=== PATIENT | female | born 1945 | race Caucasian/White ===

== ENCOUNTER 2020-12-21 11:37 | Outpatient (CLI) | payer MEDICARE | END 2020-12-21 11:38 | disposition home or self-care (01) | LOC: BICRAD 11:37 | PROVIDERS: ATTEND Family Medicine | DX: R10.9 Unspecified abdominal pain (principal) | CPT/HCPCS: 74018 ==

== ENCOUNTER 2021-05-28 13:25 | Outpatient (CLI) | payer MEDICARE | END 2021-05-28 13:26 | disposition home or self-care (01) | LOC: BICRAD 13:25 | PROVIDERS: ATTEND Family Medicine | DX: U07.1 COVID-19 (principal); J12.82 Pneumonia due to coronavirus disease 2019 | CPT/HCPCS: 71046 ==

== ENCOUNTER 2021-06-02 06:21 | Inpatient (IN) | payer MEDICARE ==
[2021-06-02 09:39] LABS: SARS-CoV-2 NAA Rapid Test Not Detected (NotDetected)
[2021-06-02] MEDS ORDERED: cefTRIAXone\\ROCEPHIN 1 GM VIAL ONE (10:25)
[2021-06-02] MEDS ORDERED: Ibuprofen 800 MG TAB ONE (10:31)
[2021-06-02 10:36] LABS: #Eosinphils 0.1 thou/uL (0.0-0.7); #Lymphocytes 0.8 thou/uL (1.20-3.40); #Monocytes 1.3 thou/uL (0.11-0.59); #Neutrophils 10.6 thou/uL (1.40-6.50); %Lymphocytes 6.3 % (21.0-51.0); %Monocytes 10.4 % (0.0-10.0); %Neutrophils 82.3 % (42.0-75.0); Hemoglobin 8.4 g/dL (12.0-16.0); Mean Corpuscular HGB CONC 30.8 g/dL (32.0-36.0); Mean Corpuscular Hemoglobin 24.7 pg (27.0-31.0); Mean Corpuscular Volume 80.3 fL (78.0-98.0); Mean Platelet Volume 10.2 fL (7.4-10.4); Platelet Count 137 thou/uL (130-400); RBC Distribution Width 16.7 % (11.5-14.5); Red Blood Cell (RBC) Count 3.41 mill/uL (4.20-5.40); White Blood Cell (WBC) Count 12.9 thou/uL (4.8-10.8)
[2021-06-02 11:08] LABS: ALT (SGPT) 43 U/L (8-55); AST (SGOT) 26 U/L (5-34); Albumin 2.2 g/dL (3.4-4.8); Alkaline Phosphatase 147 U/L (40-110); Anion Gap 12 mmol/L (10-20); BUN (Urea Nitrogen) 29 mg/dL (9.8-20.1); Bilirubin, Total 1.2 mg/dL (0.2-1.2); Calc. Creatinine Clearance 0 mL/min (70-130); Calcium 7.7 mg/dL (7.8-10.44); Carbon Dioxide 26 mmol/L (23-31); Chloride 105 mmol/L (98-107); Globulin 2.5 g/dL (2.4-3.5); Glucose 142 mg/dL (83-110); Potassium 3.6 mmol/L (3.5-5.1); Protein, Total 4.7 g/dL (5.8-8.1); Sodium 139 mmol/L (136-145)
[2021-06-02 11:18] LABS: CKMB 2.3 ng/mL (0-6.6)
[2021-06-02] MEDS ORDERED: Azithromycin 500 MG VIAL ONE (11:24)
[2021-06-02 14:11] LABS: Troponin I 0.117 ng/mL (< 0.028)
[2021-06-02] MEDS ORDERED: Acetaminophen 325 MG TAB PO PRN (14:22)
[2021-06-02] MEDS ORDERED: Enoxaparin Sodium 40 MG/0.4 ML SYRINGE SC SCH (14:30)
[2021-06-02] MEDS ORDERED: Dextrose 5% in Water 1,000 ML IV PRN (14:30)
[2021-06-02] MEDS ORDERED: Dextrose 50% Abboject 50 ML SYRINGE SLOW IVP PRN (14:30)
[2021-06-02] MEDS ORDERED: HumaLOG 300 UNITS/3 ML VIAL SC PRN (14:30)
[2021-06-02] MEDS ORDERED: hydrALAZINE 20 MG/ML VIAL SLOW IVP PRN (14:36)
[2021-06-02] MEDS ORDERED: Furosemide 20 MG/2 ML VIAL SLOW IVP SCH (14:45)
[2021-06-02] MEDS ORDERED: Lisinopril 5 MG TAB PO SCH (16:00)
[2021-06-02 16:40] LABS: Troponin I 0.129 ng/mL (< 0.028)
[2021-06-02 16:44] LABS: Hemoglobin A1c 6.8 % (4.0-6.0)
[2021-06-02] MEDS ORDERED: Polyethylene Glycol 3350 17 GM Packet PO PRN (16:51)
[2021-06-02] MEDS ORDERED: Cyclobenzaprine 10 MG TAB ONE (17:52)
[2021-06-02] MEDS ORDERED: Furosemide 20 MG/2 ML VIAL ONE (17:52)
[2021-06-02] MEDS ORDERED: Enoxaparin Sodium 40 MG/0.4 ML SYRINGE ONE (17:53)
[2021-06-02] MEDS: Nicotine 14 MG PATCH TD SCH (17:59)
[2021-06-02] MEDS: Cyclobenzaprine 10 MG TAB PO SCH ×2 (17:59→20:37)
[2021-06-02] MEDS ORDERED: Famotidine 20 MG TAB PO SCH (21:00)
[2021-06-02] MEDS: Senokot S 8.6-50 MG TAB PO SCH (22:59)
[2021-06-03] MEDS: Ibuprofen 600 MG TAB PO PRN ×3 (01:41→17:47)
[2021-06-03 05:20] LABS: ALT (SGPT) 38 U/L (8-55); AST (SGOT) 22 U/L (5-34); Alkaline Phosphatase 142 U/L (40-110); Anion Gap 12 mmol/L (10-20); BUN (Urea Nitrogen) 28 mg/dL (9.8-20.1); Bilirubin, Total 0.7 mg/dL (0.2-1.2); Calc. Creatinine Clearance 57 mL/min (70-130); Calcium 7.4 mg/dL (7.8-10.44); Carbon Dioxide 25 mmol/L (23-31); Chloride 106 mmol/L (98-107); Globulin 2.3 g/dL (2.4-3.5); Glucose 176 mg/dL (83-110); Potassium 3.8 mmol/L (3.5-5.1); Protein, Total 4.3 g/dL (5.8-8.1); Sodium 139 mmol/L (136-145)
[2021-06-03 06:37] LABS: #Eosinphils 0.2 thou/uL (0.0-0.7); #Lymphocytes 0.7 thou/uL (1.20-3.40); #Monocytes 1.3 thou/uL (0.11-0.59); #Neutrophils 10.1 thou/uL (1.40-6.50); %Basophils 0.2 % (0.0-1.0); %Eosinophils 1.9 % (0.0-10.0); %Lymphocytes 5.8 % (21.0-51.0); %Monocytes 10.3 % (0.0-10.0); %Neutrophils 81.8 % (42.0-75.0); Anisocytosis MODERATE=16-30 cells (100X) (0-5/hpf); Hemoglobin 6.7 g/dL (12.0-16.0); MDiff Complete? YES; Mean Corpuscular HGB CONC 29.5 g/dL (32.0-36.0); Mean Corpuscular Volume 81.5 fL (78.0-98.0); Mean Platelet Volume 9.7 fL (7.4-10.4); Platelet Count 119 thou/uL (130-400); Platelet Morphology Comment Appears Decreased; RBC Distribution Width 16.4 % (11.5-14.5); Red Blood Cell (RBC) Count 2.78 mill/uL (4.20-5.40); White Blood Cell (WBC) Count 12.4 thou/uL (4.8-10.8)
[2021-06-03] MEDS ORDERED: Cyclobenzaprine 10 MG TAB PO PRN (08:11)
[2021-06-03] MEDS: Azithromycin 250 MG TAB PO SCH (08:36)
[2021-06-03] MEDS: Senokot S 8.6-50 MG TAB PO SCH ×2 (08:36→21:34)
[2021-06-03] MEDS: Enoxaparin Sodium 40 MG/0.4 ML SYRINGE SC SCH (08:36)
[2021-06-03] MEDS: cefTRIAXone\\ROCEPHIN 1 GM in Sodium Chloride 0.9% 100 ML IVPB SCH (08:37)
[2021-06-03] MEDS ORDERED: Lisinopril 5 MG TAB PO SCH (09:00)
[2021-06-03] MEDS: Furosemide 20 MG/2 ML VIAL SLOW IVP SCH (09:30)
[2021-06-03] MEDS: Lisinopril 5 MG TAB PO SCH (09:30)
[2021-06-03] MEDS: HumaLOG 300 UNITS/3 ML VIAL SC PRN ×2 (11:44→17:23)
[2021-06-03 12:36] LABS: Iron 15 ug/dL (50-170); Iron Binding Capacity, Total 200 mcg/dL (265-497)
[2021-06-03 12:39] LABS: #Eosinphils 0.2 thou/uL (0.0-0.7); #Lymphocytes 0.8 thou/uL (1.20-3.40); #Monocytes 1.1 thou/uL (0.11-0.59); #Neutrophils 8.8 thou/uL (1.40-6.50); %Basophils 0.1 % (0.0-1.0); %Eosinophils 1.5 % (0.0-10.0); %Lymphocytes 7.6 % (21.0-51.0); %Neutrophils 80.8 % (42.0-75.0); Hemoglobin 7.2 g/dL (12.0-16.0); Mean Corpuscular HGB CONC 30.1 g/dL (32.0-36.0); Mean Corpuscular Hemoglobin 24.5 pg (27.0-31.0); Mean Corpuscular Volume 81.6 fL (78.0-98.0); Mean Platelet Volume 9.4 fL (7.4-10.4); Platelet Count 117 thou/uL (130-400); RBC Distribution Width 16.5 % (11.5-14.5); Red Blood Cell (RBC) Count 2.93 mill/uL (4.20-5.40); White Blood Cell (WBC) Count 10.9 thou/uL (4.8-10.8)
[2021-06-03] MEDS: Nicotine 14 MG PATCH TD SCH (15:59)
[2021-06-03] MEDS: Atorvastatin Calcium 20 MG TAB PO SCH (21:34)
[2021-06-04 05:31] LABS: #Eosinphils 0.3 thou/uL (0.0-0.7); #Lymphocytes 0.7 thou/uL (1.20-3.40); #Monocytes 0.9 thou/uL (0.11-0.59); #Neutrophils 7.9 thou/uL (1.40-6.50); %Basophils 0.2 % (0.0-1.0); %Lymphocytes 7.5 % (21.0-51.0); %Monocytes 9.4 % (0.0-10.0); %Neutrophils 79.9 % (42.0-75.0); Hemoglobin 6.7 g/dL (12.0-16.0); Mean Corpuscular Hemoglobin 24.4 pg (27.0-31.0); Mean Corpuscular Volume 81.2 fL (78.0-98.0); Platelet Count 112 thou/uL (130-400); RBC Distribution Width 16.6 % (11.5-14.5); Red Blood Cell (RBC) Count 2.73 mill/uL (4.20-5.40); White Blood Cell (WBC) Count 9.9 thou/uL (4.8-10.8)
[2021-06-04 05:55] LABS: ALT (SGPT) 36 U/L (8-55); AST (SGOT) 26 U/L (5-34); Alkaline Phosphatase 138 U/L (40-110); Anion Gap 12 mmol/L (10-20); BUN (Urea Nitrogen) 27 mg/dL (9.8-20.1); Bilirubin, Total 0.9 mg/dL (0.2-1.2); Calc. Creatinine Clearance 47 mL/min (70-130); Calcium 7.4 mg/dL (7.8-10.44); Carbon Dioxide 29 mmol/L (23-31); Chloride 106 mmol/L (98-107); Glucose 116 mg/dL (83-110); Potassium 3.7 mmol/L (3.5-5.1); Sodium 143 mmol/L (136-145)
[2021-06-04] MEDS ORDERED: Ferrous Sulfate 325 MG TAB PO SCH (09:00)
[2021-06-04] MEDS: cefTRIAXone\\ROCEPHIN 1 GM in Sodium Chloride 0.9% 100 ML IVPB SCH (09:16)
[2021-06-04] MEDS: Senokot S 8.6-50 MG TAB PO SCH ×2 (09:16→21:08)
[2021-06-04] MEDS: Azithromycin 250 MG TAB PO SCH (09:16)
[2021-06-04] MEDS: Lisinopril 5 MG TAB PO SCH (09:16)
[2021-06-04] MEDS: Enoxaparin Sodium 40 MG/0.4 ML SYRINGE SC SCH (09:19)
[2021-06-04] MEDS: Nicotine 14 MG PATCH TD SCH (13:59)
[2021-06-04] MEDS: Furosemide 20 MG/2 ML VIAL SLOW IVP SCH (14:00)
[2021-06-04 17:34] LABS: #Eosinphils 0.2 thou/uL (0.0-0.7); #Lymphocytes 0.6 thou/uL (1.20-3.40); #Monocytes 0.9 thou/uL (0.11-0.59); #Neutrophils 10.2 thou/uL (1.40-6.50); %Basophils 0.2 % (0.0-1.0); %Eosinophils 1.4 % (0.0-10.0); %Lymphocytes 5.3 % (21.0-51.0); %Monocytes 7.7 % (0.0-10.0); %Neutrophils 85.4 % (42.0-75.0); Hemoglobin 7.8 g/dL (12.0-16.0); Mean Corpuscular HGB CONC 29.5 g/dL (32.0-36.0); Mean Corpuscular Hemoglobin 24.2 pg (27.0-31.0); Mean Platelet Volume 9.2 fL (7.4-10.4); Platelet Count 93 thou/uL (130-400); RBC Distribution Width 16.5 % (11.5-14.5); Red Blood Cell (RBC) Count 3.23 mill/uL (4.20-5.40)
[2021-06-04] MEDS: Atorvastatin Calcium 20 MG TAB PO SCH (21:07)
[2021-06-04] MEDS: Metoprolol Tartrate 25 MG TAB PO SCH (21:08)
[2021-06-05 05:15] LABS: #Eosinphils 0.3 thou/uL (0.0-0.7); #Lymphocytes 0.8 thou/uL (1.20-3.40); #Neutrophils 9.7 thou/uL (1.40-6.50); %Basophils 0.2 % (0.0-1.0); %Eosinophils 2.3 % (0.0-10.0); %Lymphocytes 7.1 % (21.0-51.0); %Monocytes 8.7 % (0.0-10.0); %Neutrophils 81.7 % (42.0-75.0); Hemoglobin 7.4 g/dL (12.0-16.0); Mean Corpuscular HGB CONC 30.6 g/dL (32.0-36.0); Mean Corpuscular Hemoglobin 25.1 pg (27.0-31.0); Mean Corpuscular Volume 82.2 fL (78.0-98.0); Mean Platelet Volume 10.1 fL (7.4-10.4); Platelet Count 105 thou/uL (130-400); RBC Distribution Width 16.8 % (11.5-14.5); Red Blood Cell (RBC) Count 2.95 mill/uL (4.20-5.40); White Blood Cell (WBC) Count 11.9 thou/uL (4.8-10.8)
[2021-06-05 05:31] LABS: ALT (SGPT) 35 U/L (8-55); AST (SGOT) 27 U/L (5-34); Albumin 1.9 g/dL (3.4-4.8); Alkaline Phosphatase 135 U/L (40-110); Anion Gap 12 mmol/L (10-20); BUN (Urea Nitrogen) 23 mg/dL (9.8-20.1); Bilirubin, Total 0.9 mg/dL (0.2-1.2); Calc. Creatinine Clearance 52 mL/min (70-130); Calcium 7.6 mg/dL (7.8-10.44); Carbon Dioxide 25 mmol/L (23-31); Cardiac Risk 4.3 (Less than 4.5); Chloride 106 mmol/L (98-107); Cholesterol 139 mg/dl (< 200 Desired); Globulin 2.6 g/dL (2.4-3.5); Glucose 121 mg/dL (83-110); HDL Cholesterol 32 mg/dL (>60 Neg Risk); LDL Cholesterol, Calculated 92 mg/dL; Potassium 3.4 mmol/L (3.5-5.1); Protein, Total 4.5 g/dL (5.8-8.1); Sodium 140 mmol/L (136-145); Triglycerides 76 mg/dL (Less than 150)
[2021-06-05] MEDS: Furosemide 20 MG/2 ML VIAL SLOW IVP SCH ×2 (05:51→14:32)
[2021-06-05] MEDS ORDERED: Potassium Chloride 20 MEQ TAB PO SCH (07:00)
[2021-06-05] MEDS: Ferrous Sulfate 325 MG TAB PO SCH (08:56)
[2021-06-05] MEDS: Potassium Chloride 10 MEQ TAB PO SCH ×2 (08:56→15:41)
[2021-06-05] MEDS: Enoxaparin Sodium 40 MG/0.4 ML SYRINGE SC SCH (08:56)
[2021-06-05] MEDS: Azithromycin 250 MG TAB PO SCH (08:57)
[2021-06-05] MEDS: Metoprolol Tartrate 25 MG TAB PO SCH ×2 (08:57→20:25)
[2021-06-05] MEDS: Senokot S 8.6-50 MG TAB PO SCH ×2 (08:57→20:25)
[2021-06-05] MEDS: cefTRIAXone\\ROCEPHIN 1 GM in Sodium Chloride 0.9% 100 ML IVPB SCH (08:57)
[2021-06-05] MEDS: Nicotine 14 MG PATCH TD SCH (14:32)
[2021-06-05] MEDS: Atorvastatin Calcium 20 MG TAB PO SCH (20:25)
[2021-06-06 05:15] LABS: #Eosinphils 0.2 thou/uL (0.0-0.7); #Lymphocytes 0.6 thou/uL (1.20-3.40); #Monocytes 0.8 thou/uL (0.11-0.59); #Neutrophils 5.5 thou/uL (1.40-6.50); %Basophils 0.6 % (0.0-1.0); %Eosinophils 3.3 % (0.0-10.0); %Lymphocytes 8.4 % (21.0-51.0); %Monocytes 11.2 % (0.0-10.0); %Neutrophils 76.6 % (42.0-75.0); Hemoglobin 7.5 g/dL (12.0-16.0); Mean Corpuscular HGB CONC 30.9 g/dL (32.0-36.0); Mean Corpuscular Hemoglobin 25.1 pg (27.0-31.0); Mean Corpuscular Volume 81.3 fL (78.0-98.0); Mean Platelet Volume 10.5 fL (7.4-10.4); Platelet Count 82 thou/uL (130-400); RBC Distribution Width 16.8 % (11.5-14.5); Red Blood Cell (RBC) Count 2.99 mill/uL (4.20-5.40); White Blood Cell (WBC) Count 7.2 thou/uL (4.8-10.8)
[2021-06-06] MEDS ORDERED: Fondaparinux Sodium 2.5 MG/0.5 ML SYRINGE SC SCH (06:00)
[2021-06-06] MEDS: Furosemide 40 MG/4 ML VIAL SLOW IVP SCH ×2 (06:02→15:19)
[2021-06-06 07:54] LABS: ALT (SGPT) 34 U/L (8-55); AST (SGOT) 29 U/L (5-34); Albumin 1.8 g/dL (3.4-4.8); Alkaline Phosphatase 149 U/L (40-110); Anion Gap 10 mmol/L (10-20); BUN (Urea Nitrogen) 21 mg/dL (9.8-20.1); Bilirubin, Total 0.8 mg/dL (0.2-1.2); Calc. Creatinine Clearance 58 mL/min (70-130); Calcium 7.8 mg/dL (7.8-10.44); Carbon Dioxide 27 mmol/L (23-31); Chloride 107 mmol/L (98-107); Globulin 2.5 g/dL (2.4-3.5); Glucose 150 mg/dL (83-110); Potassium 3.4 mmol/L (3.5-5.1); Protein, Total 4.3 g/dL (5.8-8.1); Sodium 141 mmol/L (136-145)
[2021-06-06] MEDS ORDERED: Potassium Chloride 20 MEQ TAB PO SCH ×2 (09:45→11:30)
[2021-06-06] MEDS: Metoprolol Tartrate 25 MG TAB PO SCH (10:21)
[2021-06-06] MEDS: Senokot S 8.6-50 MG TAB PO SCH (10:21)
[2021-06-06] MEDS: Ferrous Sulfate 325 MG TAB PO SCH (10:21)
[2021-06-06] MEDS: Potassium Chloride 10 MEQ TAB PO SCH ×2 (10:22→18:25)
[2021-06-06 11:20] LABS: Magnesium 1.6 mg/dL (1.6-2.6)
[2021-06-06] MEDS ORDERED: Magnesium 2 GM/50 ML 2 GM in Premix Bag 1 BAG IVPB SCH (11:45)
[2021-06-06 13:15] VITALS: BMI 33.9
[2021-06-06] MEDS: Nicotine 14 MG PATCH TD SCH (15:19)
[2021-06-06 16:39] VITALS: BP 138/62; TEMP 98.6
== END 2021-06-06 18:17 | disposition home or self-care (01) | DRG 871 ==
LOC: ERS 06:21 → ERHOLD 12:06 → 2NO 22:10
PROVIDERS: ADMIT Family Medicine; ATTEND Family Medicine
PROC: 30233N1 Transfusion of Nonautologous Red Blood Cells into Peripheral Vein, Percutaneous Approach (ICD-10-PCS; principal; 2021-06-04)
DX: A41.4 Sepsis due to anaerobes (principal); J15.8 Pneumonia due to other specified bacteria; I50.33 Acute on chronic diastolic (congestive) heart failure; J44.0 Chronic obstructive pulmonary disease with (acute) lower respiratory infection; J44.1 Chronic obstructive pulmonary disease with (acute) exacerbation; Z20.822 Contact with and (suspected) exposure to COVID-19; Z23 Encounter for immunization; E66.01 Morbid (severe) obesity due to excess calories; G43.909 Migraine, unspecified, not intractable, without status migrainosus; F17.210 Nicotine dependence, cigarettes, uncomplicated; R77.8 Other specified abnormalities of plasma proteins; G89.29 Other chronic pain; M54.50 Low back pain, unspecified; M54.31 Sciatica, right side; I11.0 Hypertensive heart disease with heart failure; D50.9 Iron deficiency anemia, unspecified; R94.31 Abnormal electrocardiogram [ECG] [EKG]; I49.3 Ventricular premature depolarization; J98.8 Other specified respiratory disorders; B97.89 Other viral agents as the cause of diseases classified elsewhere; D69.6 Thrombocytopenia, unspecified; E87.6 Hypokalemia; Z68.33 Body mass index [BMI] 33.0-33.9, adult; Z86.16 Personal history of COVID-19; Z88.0 Allergy status to penicillin; Z79.899 Other long term (current) drug therapy; Z79.52 Long term (current) use of systemic steroids; Z90.710 Acquired absence of both cervix and uterus
CPT/HCPCS: 0240U; 36415; 36416; 36430; 71045; 80053; 80061; 82553; 82728; 83036; 83540; 83550; 83605; 83735; 83880; 84100; 84134; 84145; 84484; 85025; 86140; 86850; 86900; 86901; 87040; 87633; 90471; 90732; 93005; 93306; 96374; 96375; G0009; J0360; J0456; J0696; J1650; J1652; J1815; J1940; J3475; J3490; P9016

== ENCOUNTER 2022-09-26 18:35 | Inpatient (IN) | payer MEDICARE ==
[2022-09-26] MEDS ORDERED: Pantoprazole 40 MG VIAL ONE (19:21)
[2022-09-26 19:29] LABS: Mean Corpuscular Hemoglobin 24.2 pg (27.0-31.0); Mean Corpuscular Volume 86.5 fl (78.0-98.0); Mean Platelet Volume 11.3 fL (7.4-10.4); Platelet Count 253 10x3/uL (130-400); RBC Distribution Width 19.7 % (11.5-14.5); Red Blood Cell (RBC) Count 2.23 mill/uL (4.20-5.40); White Blood Cell (WBC) Count 67.1 10x3/uL (4.8-10.8)
[2022-09-26 19:36] LABS: Delete Auto Diff?? YES; Hemoglobin 5.4 g/dL (12.0-16.0); Manual Diff?? YES
[2022-09-26 19:42] LABS: INR-International Normal Ratio 1.4; Prothrombin Time 17.9 sec (12.0-14.7)
[2022-09-26 19:57] LABS: ALT (SGPT) 21 U/L (8-55); AST (SGOT) 24 U/L (5-34); Albumin 1.2 g/dL (3.4-4.8); Alkaline Phosphatase 243 U/L (40-110); Anion Gap 18 mmol/L (10-20); BUN (Urea Nitrogen) 91 mg/dL (9.8-20.1); Bilirubin, Total 0.8 mg/dL (0.2-1.2); Calc. Creatinine Clearance 0 mL/min (70-130); Calcium 7.4 mg/dL (7.8-10.44); Carbon Dioxide 21 mmol/L (23-31); Chloride 111 mmol/L (98-107); Estimated GFR 18; Globulin 1.9 g/dL (2.4-3.5); Glucose 177 mg/dL (83-110); Lipase Less than 4 U/L (8-78); Magnesium 1.9 mg/dL (1.6-2.6); Potassium 5.6 mmol/L (3.5-5.1); Protein, Total 3.1 g/dL (5.8-8.1); Sodium 144 mmol/L (136-145)
[2022-09-26] MEDS ORDERED: metroNIDAZOLE 500 MG/100 ML BAG ONE (19:59)
[2022-09-26] MEDS ORDERED: Vasopressin 20 UNITS, Admixture Fee 1 EACH in Sodium Chloride 0.9% 50 ML IV SCH (20:00)
[2022-09-26] MEDS ORDERED: Albumin 25% 25 GM/100 ML BOT IVPB SCH (20:00)
[2022-09-26] MEDS ORDERED: Pantoprazole 80 MG, Admixture Fee 1 EACH in Sodium Chloride 0.9% 100 ML IVPB SCH (20:00)
[2022-09-26 20:09] LABS: PTT Greater than 250.0 sec (22.9-36.1)
[2022-09-26 20:11] LABS: Anisocytosis SLIGHT = 6-15 cells HPF (0-5); Band 9 % (5-11); Burr Cells SLIGHT = 2-5 cells HPF (0-1); Lymphocytes 2 % (21-51); Neutrophil 89 % (42-75); Platelet Morphology Comment Platelets Normal; Poikilocytosis SLIGHT = 6-15 cells HPF (0-5); Polychromasia SLIGHT = 2-3 cells HPF (0-2); Tear Drops SLIGHT = 2-5 cells HPF (0-1); Total Cell Count 100
[2022-09-26] MEDS ORDERED: Protamine Sulfate 50 MG/5 ML VIAL SLOW IVP SCH (20:15)
[2022-09-26] MEDS ORDERED: Morphine 4 MG/ML VIAL ONE (21:16)
[2022-09-26] MEDS ORDERED: Protamine Sulfate 50 MG/5 ML VIAL ONE (22:45)
[2022-09-26 23:50] LABS: Lactic Acid 5.7 mmol/L (0.5-2.2)
[2022-09-26] MEDS ORDERED: Morphine 2 MG/ML VIAL ONE (23:56)
[2022-09-27] MEDS ORDERED: Dextrose 50% Abboject 50 ML SYRINGE SLOW IVP PRN (01:03)
[2022-09-27] MEDS ORDERED: Dextrose 5% in Water 1,000 ML IV PRN (01:03)
[2022-09-27] MEDS ORDERED: Ondansetron ODT 4 MG TAB PO PRN (01:07)
[2022-09-27] MEDS ORDERED: Ondansetron PF 4 MG/2 ML Vial IVP PRN (01:07)
[2022-09-27] MEDS ORDERED: Electrolyte Replacement Protocol 1 EACH IVPB ONE (01:08)
[2022-09-27] MEDS ORDERED: HumaLOG 300 UNITS/3 ML VIAL SC PRN ×2 (01:08)
[2022-09-27] MEDS ORDERED: Morphine 4 MG/ML VIAL SLOW IVP PRN (01:18)
[2022-09-27] MEDS ORDERED: Furosemide 40 MG/4 ML VIAL SLOW IVP SCH (01:30)
[2022-09-27 01:31] LABS: INR-International Normal Ratio 1.6; Prothrombin Time 19.8 sec (12.0-14.7)
[2022-09-27] MEDS ORDERED: fentaNYL 50 mcg/mL 1 mL Vial SLOW IVP PRN (01:31)
[2022-09-27 01:32] LABS: PTT 31.6 sec (22.9-36.1)
[2022-09-27 03:52] LABS: Hemoglobin 7.1 g/dL (12.0-16.0)
[2022-09-27 03:53] LABS: #Neutrophils 47.9 thou/uL (1.40-6.50); %Lymphocytes 1.3 % (21.0-51.0); %Monocytes 1.9 % (0.0-10.0); %Neutrophils 92.2 % (42.0-75.0); Hemoglobin 7.1 g/dL (12.0-16.0); Mean Corpuscular Volume 86.1 fl (78.0-98.0); Mean Platelet Volume 11.2 fL (7.4-10.4); Platelet Count 200 10x3/uL (130-400); RBC Distribution Width 17.9 % (11.5-14.5)
[2022-09-27 04:15] LABS: INR-International Normal Ratio 1.5; Prothrombin Time 19.1 sec (12.0-14.7)
[2022-09-27 04:16] LABS: PTT 33.8 sec (22.9-36.1)
[2022-09-27 04:36] LABS: Troponin I 0.015 ng/mL (< 0.028)
[2022-09-27 04:40] LABS: ALT (SGPT) 21 U/L (8-55); AST (SGOT) 27 U/L (5-34); Albumin 1.8 g/dL (3.4-4.8); Alkaline Phosphatase 195 U/L (40-110); Anion Gap 16 mmol/L (10-20); BUN (Urea Nitrogen) 96 mg/dL (9.8-20.1); Bilirubin, Total 2.2 mg/dL (0.2-1.2); Calc. Creatinine Clearance 29 mL/min (70-130); Calcium 7.8 mg/dL (7.8-10.44); Carbon Dioxide 24 mmol/L (23-31); Chloride 107 mmol/L (98-107); Estimated GFR 18; Glucose 169 mg/dL (83-110); Potassium 5.8 mmol/L (3.5-5.1); Protein, Total 3.8 g/dL (5.8-8.1); Sodium 141 mmol/L (136-145)
[2022-09-27 05:55] LABS: D-Dimer Test 1.9 *mcg/mL (0.27-0.43)
[2022-09-27 06:10] LABS: Manual Diff?? YES
[2022-09-27 06:53] LABS: Anisocytosis SLIGHT = 6-15 cells HPF (0-5); Band 10 % (5-11); Burr Cells MODERATE= 6-15 cells HPF (0-1); Hypochromia SLIGHT = 6-15 cells HPF (0-5); Macrocytosis SLIGHT = 6-15 cells HPF (0-5); Myelocyte 1 % (0-0); Neutrophil 89 % (42-75); Platelet Morphology Comment Platelets Normal; Poikilocytosis SLIGHT = 6-15 cells HPF (0-5); Polychromasia SLIGHT = 2-3 cells HPF (0-2); Total Cell Count 101
[2022-09-27 08:44] LABS: Hemoglobin 7.1 g/dL (12.0-16.0)
[2022-09-27] MEDS: Pantoprazole 40 MG VIAL IVP SCH ×2 (08:50→19:52)
[2022-09-27] MEDS ORDERED: Albumin 25% 25 GM/100 ML BOT IVPB SCH (10:45)
[2022-09-27] MEDS ORDERED: Nicotine 14 MG PATCH TD PRN (14:55)
[2022-09-27] MEDS: Acetaminophen 325 MG TAB PO PRN ×2 (15:23→23:34)
[2022-09-27 16:02] LABS: Hemoglobin 7.3 g/dL (12.0-16.0)
[2022-09-27 17:14] LABS: Anion Gap 18 mmol/L (10-20); BUN (Urea Nitrogen) 101 mg/dL (9.8-20.1); Calc. Creatinine Clearance 27 mL/min (70-130); Calcium 7.3 mg/dL (7.8-10.44); Carbon Dioxide 20 mmol/L (23-31); Chloride 108 mmol/L (98-107); Estimated GFR 16; Glucose 219 mg/dL (83-110); Sodium 139 mmol/L (136-145)
[2022-09-27] MEDS: Albumin 25% 25 GM/100 ML BOT IVPB SCH ×2 (17:28→23:34)
[2022-09-27 17:40] LABS: Potassium 6.8 mmol/L (3.5-5.1)
[2022-09-27] MEDS ORDERED: CALCIUM GLUC 1 GM/NS 50 ML 1 GM in Premix Bag 1 BAG IVPB SCH (18:15)
[2022-09-27] MEDS ORDERED: HumaLOG 300 UNITS/3 ML VIAL SC SCH (18:45)
[2022-09-27] MEDS ORDERED: Dextrose 50% Abboject 50 ML SYRINGE SLOW IVP SCH (18:45)
[2022-09-27] MEDS ORDERED: LOKELMA 10 GM PACKET PO SCH (18:45)
[2022-09-27] MEDS ORDERED: Insulin Regular 300 UNITS/3 ML VIAL IVP SCH (18:45)
[2022-09-27] MEDS ORDERED: Phytonadione 10 MG in Sodium Chloride 0.9% 50 ML IVPB SCH (20:45)
[2022-09-27] MEDS ORDERED: Furosemide 100 MG/10 ML VIAL SLOW IVP SCH (21:45)
[2022-09-27 23:24] LABS: Bilirubin Negative (Negative); Blood, Urine Negative (Negative); Clarity Turbid (Clear); Glucose, Urine (Dipstick) Normal (Negative); Ketone, Urine Negative (Negative); Leukocyte Negative Leu/uL (Negative); Nitrite Negative (Negative); Protein, Urine (Dipstick) 70 mg/dL (Neg-Trace); RBC/HPF 0-3 HPF (0-3); Renal Epithelial 0-3 HPF (None Seen); Specific Gravity, Urine 1.015 (1.002-1.036); Squamous Epithelial 0-3 HPF (0-3); Urobilinogen Normal mg/dL (Less than 2); WBC/HPF 0-3 HPF (0-3); pH, Urine 5.5 (5.0-9.0)
[2022-09-27 23:25] LABS: Anion Gap 21 mmol/L (10-20); BUN (Urea Nitrogen) 104 mg/dL (9.8-20.1); Calc. Creatinine Clearance 26 mL/min (70-130); Calcium 7.4 mg/dL (7.8-10.44); Carbon Dioxide 18 mmol/L (23-31); Chloride 112 mmol/L (98-107); Estimated GFR 15; Glucose 196 mg/dL (83-110); Sodium 144 mmol/L (136-145)
[2022-09-27 23:29] LABS: Potassium 6.6 mmol/L (3.5-5.1)
[2022-09-27 23:31] LABS: Bacteria/HPF 2+ HPF (None Seen)
[2022-09-28 00:33] LABS: Hemoglobin 5.1 g/dL (12.0-16.0); Platelet Count 182 10x3/uL (130-400)
[2022-09-28] MEDS ORDERED: LOKELMA 10 GM PACKET PO SCH (02:00)
[2022-09-28] MEDS ORDERED: CALCIUM GLUC 1 GM/NS 50 ML 1 GM in Premix Bag 1 BAG IVPB SCH (02:30)
[2022-09-28] MEDS ORDERED: Dextrose 50% Abboject 50 ML SYRINGE SLOW IVP SCH (02:30)
[2022-09-28] MEDS ORDERED: Insulin Regular 300 UNITS/3 ML VIAL IVP SCH (02:30)
[2022-09-28 04:29] LABS: Mean Corpuscular HGB CONC 30.7 g/dL (32.0-36.0); Mean Corpuscular Hemoglobin 26.3 pg (27.0-31.0); Mean Corpuscular Volume 85.8 fl (78.0-98.0); Mean Platelet Volume 11.7 fL (7.4-10.4); Platelet Count 168 10x3/uL (130-400); RBC Distribution Width 17.9 % (11.5-14.5); White Blood Cell (WBC) Count 36.4 10x3/uL (4.8-10.8)
[2022-09-28 04:35] LABS: Manual Diff?? YES
[2022-09-28 04:36] LABS: Delete Auto Diff?? YES
[2022-09-28 04:43] LABS: INR-International Normal Ratio 1.8; PTT 39.7 sec (22.9-36.1); Prothrombin Time 21.7 sec (12.0-14.7)
[2022-09-28 04:50] LABS: ALT (SGPT) 18 U/L (8-55); AST (SGOT) 21 U/L (5-34); Albumin 2.1 g/dL (3.4-4.8); Alkaline Phosphatase 140 U/L (40-110); Anion Gap 16 mmol/L (10-20); BUN (Urea Nitrogen) 101 mg/dL (9.8-20.1); Bilirubin, Total 1.9 mg/dL (0.2-1.2); Calc. Creatinine Clearance 26 mL/min (70-130); Calcium 7.4 mg/dL (7.8-10.44); Carbon Dioxide 22 mmol/L (23-31); Chloride 109 mmol/L (98-107); Estimated GFR 15; Globulin 1.5 g/dL (2.4-3.5); Glucose 165 mg/dL (83-110); Potassium 5.6 mmol/L (3.5-5.1); Protein, Total 3.6 g/dL (5.8-8.1); Sodium 141 mmol/L (136-145)
[2022-09-28 05:20] LABS: Anisocytosis SLIGHT = 6-15 cells HPF (0-5); Band 5 % (5-11); Burr Cells SLIGHT = 2-5 cells HPF (0-1); Hypochromia MODERATE=16-30 cells HPF (0-5); Lymphocytes 3 % (21-51); Macrocytosis SLIGHT = 6-15 cells HPF (0-5); Neutrophil 92 % (42-75); Ovalocytes SLIGHT = 2-5 cells HPF (0-1); Platelet Morphology Comment Platelets Normal; Polychromasia SLIGHT = 2-3 cells HPF (0-2); Target Cells SLIGHT = 2-5 cells HPF (0-1); Total Cell Count 101
[2022-09-28] MEDS ORDERED: Furosemide 40 MG/4 ML VIAL SLOW IVP SCH (05:45)
[2022-09-28] MEDS: Albumin 25% 25 GM/100 ML BOT IVPB SCH ×2 (06:54→14:15)
[2022-09-28] MEDS: Pantoprazole 40 MG VIAL IVP SCH ×2 (09:38→20:44)
[2022-09-28 09:45] LABS: Bilirubin Negative (Negative); Blood, Urine 1+ (Negative); Clarity Turbid (Clear); Glucose, Urine (Dipstick) Normal (Negative); Ketone, Urine Negative (Negative); Leukocyte 250 Leu/uL (Negative); Nitrite Negative (Negative); Protein, Urine (Dipstick) 70 mg/dL (Neg-Trace); Urobilinogen Normal mg/dL (Less than 2); WBC/HPF 21-50 HPF (0-3); pH, Urine 5.5 (5.0-9.0)
[2022-09-28 09:58] LABS: Bacteria/HPF 1+ HPF (None Seen)
[2022-09-28 10:49] LABS: #Basophils 0.1 thou/uL (0.0-0.2); #Eosinphils 0.1 thou/uL (0.0-0.7); #Monocytes 1.3 thou/uL (0.11-0.59); #Neutrophils 23.6 thou/uL (1.40-6.50); %Basophils 0.2 % (0.0-1.0); %Eosinophils 0.3 % (0.0-10.0); %Lymphocytes 3.1 % (21.0-51.0); %Monocytes 4.8 % (0.0-10.0); %Neutrophils 87.3 % (42.0-75.0); Hemoglobin 6.2 g/dL (12.0-16.0); Mean Corpuscular Hemoglobin 28.2 pg (27.0-31.0); Mean Corpuscular Volume 85.5 fl (78.0-98.0); Mean Platelet Volume 11.7 fL (7.4-10.4); Platelet Count 127 10x3/uL (130-400); RBC Distribution Width 16.9 % (11.5-14.5); White Blood Cell (WBC) Count 27.1 10x3/uL (4.8-10.8)
[2022-09-28 10:51] LABS: Platelet Count 134 10x3/uL (130-400)
[2022-09-28 11:04] LABS: Fibrinogen 277 mg/dL (253-463)
[2022-09-28 11:05] LABS: INR-International Normal Ratio 1.7; PTT 40.2 sec (22.9-36.1); Prothrombin Time 20.8 sec (12.0-14.7)
[2022-09-28 11:06] LABS: D-Dimer Test 1.45 *mcg/mL (0.27-0.43)
[2022-09-28] MEDS ORDERED: KETAMINE 100 MG/ML (5ML VIAL) ONE (12:20)
[2022-09-28] MEDS ORDERED: Vasopressin 20 UNITS/ML VIAL ONE (12:20)
[2022-09-28] MEDS ORDERED: Midazolam HCl 2 mg/2 ml Vial ONE (12:20)
[2022-09-28] MEDS ORDERED: fentaNYL 50 mcg/mL 1 mL Vial ONE (12:21)
[2022-09-28 14:00] LABS: Anion Gap 15 mmol/L (10-20); BUN (Urea Nitrogen) 103 mg/dL (9.8-20.1); Calc. Creatinine Clearance 27 mL/min (70-130); Calcium 7.5 mg/dL (7.8-10.44); Carbon Dioxide 25 mmol/L (23-31); Chloride 108 mmol/L (98-107); Estimated GFR 16; Glucose 166 mg/dL (83-110); Sodium 143 mmol/L (136-145); Uric Acid 13.4 mg/dL (2.6-6.0)
[2022-09-28 15:36] VITALS: BMI 41.1
[2022-09-28] MEDS: Acetaminophen 325 MG TAB PO PRN (20:39)
[2022-09-28 23:36] LABS: Hemoglobin 6.2 g/dL (12.0-16.0)
[2022-09-28 23:37] LABS: Platelet Count 114 10x3/uL (130-400)
[2022-09-29] MEDS ORDERED: fentaNYL 50 mcg/mL 1 mL Vial SLOW IVP PRN
[2022-09-29] MEDS: Acetaminophen 325 MG TAB PO PRN ×2 (03:13→21:31)
[2022-09-29 05:00] LABS: #Basophils 0.1 thou/uL (0.0-0.2); #Eosinphils 0.2 thou/uL (0.0-0.7); #Monocytes 1.5 thou/uL (0.11-0.59); #Neutrophils 19.1 thou/uL (1.40-6.50); %Basophils 0.3 % (0.0-1.0); %Lymphocytes 4.1 % (21.0-51.0); %Monocytes 6.5 % (0.0-10.0); %Neutrophils 83.4 % (42.0-75.0); Mean Corpuscular Hemoglobin 28.1 pg (27.0-31.0); Mean Platelet Volume 11.6 fL (7.4-10.4); RBC Distribution Width 16.4 % (11.5-14.5); Red Blood Cell (RBC) Count 2.49 mill/uL (4.20-5.40); White Blood Cell (WBC) Count 22.9 10x3/uL (4.8-10.8)
[2022-09-29 05:01] LABS: Platelet Count 100 10x3/uL (130-400)
[2022-09-29 05:06] LABS: Platelet Count 105 10x3/uL (130-400)
[2022-09-29 05:16] LABS: INR-International Normal Ratio 1.5; PTT 36.5 sec (22.9-36.1); Prothrombin Time 18.5 sec (12.0-14.7)
[2022-09-29 05:32] LABS: Fibrinogen 301 mg/dL (253-463)
[2022-09-29 05:33] LABS: INR-International Normal Ratio 1.5; PTT 36.3 sec (22.9-36.1); Prothrombin Time 18.7 sec (12.0-14.7)
[2022-09-29 05:34] LABS: D-Dimer Test 2.45 *mcg/mL (0.27-0.43)
[2022-09-29 06:34] LABS: ALT (SGPT) 18 U/L (8-55); AST (SGOT) 34 U/L (5-34); Alkaline Phosphatase 105 U/L (40-110); Anion Gap 15 mmol/L (10-20); BUN (Urea Nitrogen) 103 mg/dL (9.8-20.1); Calc. Creatinine Clearance 26 mL/min (70-130); Calcium 7.3 mg/dL (7.8-10.44); Carbon Dioxide 23 mmol/L (23-31); Chloride 110 mmol/L (98-107); Estimated GFR 15; Globulin 1.5 g/dL (2.4-3.5); Glucose 111 mg/dL (83-110); Potassium 4.8 mmol/L (3.5-5.1); Protein, Total 3.5 g/dL (5.8-8.1); Sodium 143 mmol/L (136-145)
[2022-09-29 07:39] LABS: Hemoglobin 6.8 g/dL (12.0-16.0); Platelet Count 103 10x3/uL (130-400)
[2022-09-29] MEDS ORDERED: GoLYTELY 4,000 ml Bottle PO SCH (09:00)
[2022-09-29] MEDS: Pantoprazole 40 MG VIAL IVP SCH ×2 (09:31→20:25)
[2022-09-29] MEDS ORDERED: Furosemide 40 MG/4 ML VIAL SLOW IVP SCH (12:00)
[2022-09-29] MEDS: fentaNYL 50 mcg/mL 1 mL Vial SLOW IVP PRN ×2 (12:16→17:09)
[2022-09-29 16:27] LABS: Platelet Count 116 10x3/uL (130-400)
[2022-09-29 16:29] LABS: Hemoglobin 8.3 g/dL (12.0-16.0)
[2022-09-29 21:03] LABS: Hemoglobin 7.8 g/dL (12.0-16.0)
[2022-09-29 21:05] LABS: Platelet Count 112 10x3/uL (130-400)
[2022-09-30 02:43] LABS: Hemoglobin 7.5 g/dL (12.0-16.0); Platelet Count 107 10x3/uL (130-400)
[2022-09-30 04:59] LABS: #Basophils 0.1 thou/uL (0.0-0.2); #Eosinphils 0.2 thou/uL (0.0-0.7); #Monocytes 1.4 thou/uL (0.11-0.59); #Neutrophils 19.7 thou/uL (1.40-6.50); %Basophils 0.2 % (0.0-1.0); %Eosinophils 0.8 % (0.0-10.0); %Lymphocytes 3.6 % (21.0-51.0); %Monocytes 5.9 % (0.0-10.0); %Neutrophils 85.2 % (42.0-75.0); Mean Corpuscular Hemoglobin 28.8 pg (27.0-31.0); Mean Corpuscular Volume 87.2 fl (78.0-98.0); Mean Platelet Volume 11.3 fL (7.4-10.4); RBC Distribution Width 16.8 % (11.5-14.5); Red Blood Cell (RBC) Count 2.43 mill/uL (4.20-5.40); White Blood Cell (WBC) Count 23.1 10x3/uL (4.8-10.8)
[2022-09-30 05:02] LABS: Platelet Count 107 10x3/uL (130-400)
[2022-09-30 05:04] LABS: Platelet Count 105 10x3/uL (130-400)
[2022-09-30 05:31] LABS: Fibrinogen 292 mg/dL (253-463)
[2022-09-30 05:32] LABS: INR-International Normal Ratio 1.5; PTT 34.6 sec (22.9-36.1); Prothrombin Time 18.5 sec (12.0-14.7)
[2022-09-30 05:34] LABS: ALT (SGPT) 16 U/L (8-55); AST (SGOT) 28 U/L (5-34); Albumin 1.9 g/dL (3.4-4.8); Alkaline Phosphatase 132 U/L (40-110); Anion Gap 14 mmol/L (10-20); BUN (Urea Nitrogen) 93 mg/dL (9.8-20.1); Bilirubin, Total 2.1 mg/dL (0.2-1.2); Calc. Creatinine Clearance 28 mL/min (70-130); Calcium 7.3 mg/dL (7.8-10.44); Carbon Dioxide 25 mmol/L (23-31); Chloride 107 mmol/L (98-107); Estimated GFR 16; Globulin 1.6 g/dL (2.4-3.5); Glucose 150 mg/dL (83-110); Potassium 4.1 mmol/L (3.5-5.1); Protein, Total 3.5 g/dL (5.8-8.1); Sodium 142 mmol/L (136-145)
[2022-09-30 05:40] LABS: D-Dimer Test 2.21 *mcg/mL (0.27-0.43)
[2022-09-30] MEDS ORDERED: Furosemide 40 MG/4 ML VIAL SLOW IVP SCH (09:00)
[2022-09-30 09:18] LABS: Hemoglobin 7.1 g/dL (12.0-16.0); Platelet Count 115 10x3/uL (130-400)
[2022-09-30] MEDS: Pantoprazole 40 MG VIAL IVP SCH (10:01)
[2022-09-30] MEDS ORDERED: PROPOFOL 200 MG/20 ML VIAL ONE (11:19)
[2022-09-30] MEDS ORDERED: EPINEPHrine 1 MG/10 ML Abboject SYRINGE ONE (11:19)
[2022-09-30] MEDS ORDERED: Albumin 25% 25 GM/100 ML BOT IVPB SCH (12:00)
[2022-09-30] MEDS ORDERED: Octreotide Acetate 100 MCG/ML VIAL SLOW IVP SCH (12:30)
[2022-09-30] MEDS ORDERED: Octreotide Acetate 1,250 MCG in Sodium Chloride 0.9% 250 ML 250 ML IVPB SCH (12:30)
[2022-09-30] MEDS ORDERED: Succinylcholine Chloride 100 MG/5 ML SYRINGE FS ONE (12:40)
[2022-09-30] MEDS ORDERED: Ketamine 50 MG/ML (10ML VIAL) SLOW IVP SCH (12:45)
[2022-09-30] MEDS ORDERED: Morphine 2 MG/ML VIAL SLOW IVP PRN (12:45)
[2022-09-30] MEDS ORDERED: Fentanyl CADD 100 ML IV SCH (12:45)
[2022-09-30] MEDS ORDERED: Fentanyl BOLUS 250 ML IVPB PRN (12:45)
[2022-09-30] MEDS ORDERED: Propofol 1,000 MG/100 ML VIAL IV PRN (12:45)
[2022-09-30] MEDS ORDERED: Propofol BOLUS 1,000 MG/100 ML VIAL IV PRN (12:45)
[2022-09-30] MEDS ORDERED: Lorazepam 2 MG/ML VIAL SLOW IVP PRN (12:45)
[2022-09-30] MEDS ORDERED: Ipratropium/Albuterol 3 ML NEB ONE (13:08)
[2022-09-30] MEDS ORDERED: methylPREDNISolone Sod Succ/PF 125 MG in Sodium Chloride 0.9% 250 ML 250 ML IVPB SCH (13:15)
[2022-09-30 13:24] LABS: Actual Bicarbonate (HCO3a) 23.9 mEq/L (22-28); Base Excess (BEa) -3.4 mEq/L (-2.0 to +3.0); CO2 Tension 54.6 mmHg (35.0-45.0); Carboxyhemoglobin (COHb) 0.3 gm% (0.0-3.0); Hematocrit-ABG 29 % (36.0-47.0); O2 Tension (PaO2), arterial 83.3 mmHg (> 70.0); Potassium - ABG Lab 3.99 mmol/L (3.70-5.30); pH, Arterial 7.259 (7.35-7.45)
[2022-09-30 13:29] LABS: Puncture Site LRA
[2022-09-30] MEDS ORDERED: methylPREDNISolone Sod Succ/PF 125 MG/2 ML VIAL IVP SCH (14:00)
[2022-09-30] MEDS ORDERED: Ipratropium/Albuterol 3 ML NEB NEB SCH (14:30)
[2022-09-30 17:06] LABS: Ref Lab Test Ordered BCR-ABL; Reference Lab Name LABCORP
[2022-09-30 17:28] LABS: Platelet Count 121 10x3/uL (130-400)
[2022-09-30 17:30] LABS: Hemoglobin 11.5 g/dL (12.0-16.0)
[2022-09-30 17:34] VITALS: BP 113/63; TEMP 95
[2022-09-30] MEDS ORDERED: methylPREDNISolone Sod Succ 40 MG VIAL IVP SCH (18:00)
[2022-09-30 18:30] LABS: Hemoglobin 10.8 g/dL (12.0-16.0)
[2022-09-30 18:32] LABS: Platelet Count 116 10x3/uL (130-400)
[2022-09-30 18:42] LABS: Fibrinogen 333 mg/dL (253-463)
[2022-09-30 18:43] LABS: D-Dimer Test 2.78 *mcg/mL (0.27-0.43); INR-International Normal Ratio 1.4; PTT 33.4 sec (22.9-36.1); Prothrombin Time 18.1 sec (12.0-14.7)
== END 2022-09-30 17:40 | disposition short-term general hospital (02) | DRG 388 ==
LOC: ERS 18:35 → CCU 23:41 → 2NO 09-27 12:45 → IMCU/EMU 09-28 03:03 → CCU 09-30 12:31
PROVIDERS: ADMIT Family Medicine; ATTEND Family Medicine
PROC: 30233N1 Transfusion of Nonautologous Red Blood Cells into Peripheral Vein, Percutaneous Approach (ICD-10-PCS; 2022-09-26)
PROC: 3E033XZ Introduction of Vasopressor into Peripheral Vein, Percutaneous Approach (ICD-10-PCS; 2022-09-26)
PROC: 4A033R1 Measurement of Arterial Saturation, Peripheral, Percutaneous Approach (ICD-10-PCS; 2022-09-26)
PROC: 02HV33Z Insertion of Infusion Device into Superior Vena Cava, Percutaneous Approach (ICD-10-PCS; principal; 2022-09-28)
PROC: B548ZZA Ultrasonography of Superior Vena Cava, Guidance (ICD-10-PCS; 2022-09-28)
PROC: 30233K1 Transfusion of Nonautologous Frozen Plasma into Peripheral Vein, Percutaneous Approach (ICD-10-PCS; 2022-09-28)
PROC: 30233M1 Transfusion of Nonautologous Plasma Cryoprecipitate into Peripheral Vein, Percutaneous Approach (ICD-10-PCS; 2022-09-28)
PROC: 0DJ08ZZ Inspection of Upper Intestinal Tract, Via Natural or Artificial Opening Endoscopic (ICD-10-PCS; 2022-09-28)
PROC: 0W3P8ZZ Control Bleeding in Gastrointestinal Tract, Via Natural or Artificial Opening Endoscopic (ICD-10-PCS; 2022-09-30)
PROC: 0BH17EZ Insertion of Endotracheal Airway into Trachea, Via Natural or Artificial Opening (ICD-10-PCS; 2022-09-30)
PROC: 5A1935Z Respiratory Ventilation, Less than 24 Consecutive Hours (ICD-10-PCS; 2022-09-30)
DX: K56.50 Intestinal adhesions [bands], unspecified as to partial versus complete obstruction (principal); D65 Disseminated intravascular coagulation [defibrination syndrome]; G93.41 Metabolic encephalopathy; R57.1 Hypovolemic shock; N17.0 Acute kidney failure with tubular necrosis; J96.01 Acute respiratory failure with hypoxia; K92.2 Gastrointestinal hemorrhage, unspecified; I13.0 Hypertensive heart and chronic kidney disease with heart failure and stage 1 through stage 4 chronic kidney disease, or unspecified chronic kidney disease; I50.32 Chronic diastolic (congestive) heart failure; E87.20 Acidosis, unspecified; D62 Acute posthemorrhagic anemia; J44.1 Chronic obstructive pulmonary disease with (acute) exacerbation; D50.9 Iron deficiency anemia, unspecified; N18.9 Chronic kidney disease, unspecified; E11.22 Type 2 diabetes mellitus with diabetic chronic kidney disease; J44.9 Chronic obstructive pulmonary disease, unspecified; E87.5 Hyperkalemia; G43.909 Migraine, unspecified, not intractable, without status migrainosus; M54.40 Lumbago with sciatica, unspecified side; G89.29 Other chronic pain; Z88.0 Allergy status to penicillin; Z79.899 Other long term (current) drug therapy; Z87.891 Personal history of nicotine dependence; Z90.710 Acquired absence of both cervix and uterus; D69.6 Thrombocytopenia, unspecified; K25.9 Gastric ulcer, unspecified as acute or chronic, without hemorrhage or perforation; K31.819 Angiodysplasia of stomach and duodenum without bleeding
CPT/HCPCS: 36415; 36416; 36430; 36600; 70450; 71045; 74176; 76705; 80053; 81001; 82805; 82977; 83010; 83605; 83615; 83690; 83735; 83880; 84145; 84484; 84550; 85014; 85018; 85025; 85046; 85049; 85060; 85300; 85362; 85379; 85384; 85610; 85730; 86850; 86900; 86901; 87040; 87086; 88184; 88185; 88189; 93005; 93010; 93970; 94002; 94640; 96365; 96366; 96368; 96375; 97139; C9113; J0171; J0613; J1815; J1940; J1956; J2250; J2270; J2272; J2354; J2704; J2720; J2930; J3010; J3430; J3490; J7050; J7620; J7999; P9012; P9016; P9047; P9059